=== PATIENT | male | born 1970 | race Caucasian/White ===

== ENCOUNTER → 2017-04-25 | Outpatient (CLI) | payer BC ==
[2016-04-10 11:00] VITALS: BP 113/78
[~2017-04-25] MED LIST: CIPR500T94 PO; DIPH25CA58 PO; METR500T PO; no home medications
--- NOTE | 2017-04-25 18:05 | KCIC ---
5 view cervical spine radiographs 04/25/2017 CLINICAL HISTORY: Low back pain which radiates down both legs. AP, 2 lateral and bilateral oblique digital radiographs of the lumbar spine were obtained. Minimal lateral curvature of the lumbar spine is seen convex to the right. Degenerative changes consisting of vertebral endplate sclerosis and minimal anterior and posterior vertebral body osteophyte formation is seen involving the mid and lower lumbar disc spaces. Mild degenerative changes are seen along the facet joints at L4-5 and L5-S1. Mild disc space narrowing is seen at L4-5 and L5-S1. No fracture or subluxation is seen. IMPRESSION: Relatively mild degenerative changes are seen involving the mid and lower lumbar spine as outlined above. No acute osseous abnormality is seen. Electronically signed by: Shun Goode MD (04/25/2017 6:02 PM)
== END | disposition home or self-care (01) ==
LOC: KCIC 13:57
PROVIDERS: ATTEND Family Medicine
DX: M47.896 Other spondylosis, lumbar region (principal); M54.32 Sciatica, left side; M54.31 Sciatica, right side
CPT/HCPCS: 72110

== ENCOUNTER 2018-12-07 13:56 | Emergency (ER) | payer BC ==
[~2018-12-07] VITALS: Ht 177.8 cm; Wt 69.4 kg
[2018-12-07 13:56] VITALS: BP 153/90
[2018-12-07] MEDS: DEXAMETHASONE SOD PHOS 20 MG/5 ML VIAL. IM ONE (14:49)
[2018-12-07] MEDS: diazePAM 5 MG TABLET PO ONE (14:49)
[2018-12-07] MEDS: HYDROcodone/APAP 5/325MG 1 TAB TABLET PO ONE (15:31)
[2018-12-07] MEDS ORDERED: ORPH100T PO (15:39)
--- NOTE | 2018-12-07 15:39 | PHYS DOC ---
Past Medical History Past Medical History: Other Additional Past Medical Histor: BACK PAIN Past Surgical History: Other Additional Past Surgical Histo: VASECTOMY, CYST R WRIST Alcohol Use: Occasionally Drug Use: None Adult General Chief Complaint Chief Complaint: BACK PAIN OR INJURY [facility] HPI Patient is a 48 year old who presents to the emergency room, accompanied by his fiance, with complaints of severe low back pain that shoots into his bilateral groin since Tuesday. Patient states pain began when he was bending down to clean some hiking boots. He denies any fall or known injury. Currently reports pain is 9 out of 10 on pain scale he states that nothing alleviates his pain however this was worsened concern positions. He has gone to the chiropractor 3 times this week and received acupuncture with no relief of his pain. Patient denies any saddle anesthesia, priapism, or loss of bowel or bladder control. He states he has been taking naproxen, Flexeril, and Tylenol for relief of pain. Review of Systems Review of Systems Constitutional: Denies fever or chills [] Respiratory: Denies cough or shortness of breath [] Cardiovascular: No additional information not addressed in HPI [] GI: Denies abdominal pain, nausea, vomiting, or saddle anesthesia : Denies dysuria, increased urinary frequency, or hematuria; see history of present illness [] Musculoskeletal: See history of present illness Integument: Denies rash or skin lesions [] Neurologic: Denies headache, focal weakness or sensory changes [] Current Medications Current Medications Current Medications Medications (Trade) Dose Ordered Sig/Carole Start Time Stop Time Status Last Admin Dose Admin Acetaminophen/ Hydrocodone Bitart (Lortab 5/325) 1 tab 1X ONCE 12/07/18 15:30 12/07/18 15:31 DC 12/07/18 15:31 1 TAB Dexamethasone Sodium Phosphate (Decadron) 10 mg 1X ONCE 12/07/18 14:30 12/07/18 14:31 DC 12/07/18 14:49 10 MG Diazepam (Valium) 5 mg 1X ONCE 12/07/18 14:30 12/07/18 14:31 DC 12/07/18 14:49 5 MG Allergies Allergies Allergies Coded Allergies Type Severity Reaction Last Updated Verified No Known Drug Allergies 12/07/18 No Physical Exam Physical Exam Constitutional: Well developed, well nourished, no acute distress, non-toxic appearance. [] HENT: Normocephalic, atraumatic, bilateral external ears normal, oropharynx moist, nose normal. [] Eyes: PERRLA, conjunctiva normal, no discharge. [] Neck: Normal range of motion, no stridor. [] Cardiovascular:Heart rate regular rhythm, no murmur [] Lungs & Thorax: Bilateral breath sounds clear to auscultation [] Skin: Warm, dry, no erythema, no rash. [] Back: No bony tenderness, or deformity; bilateral lumbar paraspinal tenderness, increased pain with straight leg lift bilaterally Extremities: No cyanosis, ROM intact, no edema. [] Neurologic: Alert and oriented X 3, normal motor function, normal sensory function, no focal deficits noted. [] Psychologic: Affect normal, judgement normal, mood normal. [] Current Patient Data Vital Signs Vital Signs Date Time Temp Pulse Resp B/P (MAP) Pulse Ox O2 Delivery O2 Flow Rate FiO2 12/07/18 13:56 98.0 110 18 153/90 (111) 99 Room Air 98.0 EKG EKG [] Radiology/Procedures Radiology/Procedures [] Course & Med Decision Making Course & Med Decision Making Pertinent Labs and Imaging studies reviewed. (See chart for details) Dx: acute bilateral low back pain DDx: cauda equina syndrome, UTI, kidney stone Pt was given 5 mg of valium, 1 hydrocodone, and 10 mg of IM decadron in the ER. He reports some relief in pain. Prescription written for orphenadrine and hydrocodone. Follow up with PCP for further evaluation and possibly MRI. Patient verbalized an understanding of home care, medications, follow-up, and return to ED instructions and was in agreement with the plan of care. [] Dragon Disclaimer Dragon Disclaimer This electronic medical record was generated, in whole or in part, using a voice recognition dictation system. Departure Departure Impression: Primary Impression: Low back pain Disposition: 01 HOME, SELF-CARE Condition: STABLE Referrals: KAVON ISABEL (PCP) Patient Instructions: Back Pain, Adult, [id number] Additional Instructions: Fill prescription and use as directed. Follow up with your primary care doctor for further evaluation of your back pain and possibly an MRI, return to the ER if symptoms worsen. Scripts Hydrocodone Bit/Acetaminophen (HYDROCODONE-APAP 5-325 ) 1 Tab Tablet 1 TAB PO PRN Q6HRS PRN for PAIN for 3 Days, #12 TAB 0 Refills Prov: BERTRAM BEDOYA APRN 12/07/18 Orphenadrine Citrate (ORPHENADRINE CITRATE) 100 Mg Tablet.er 100 MG PO BID PRN for MUSCLE SPASMS for 10 Days, #20 TAB.SR 0 Refills Prov: BERTRAM BEDOYA APRN 12/07/18 Problem Qualifiers Primary Impression: Low back pain Chronicity: acute Back pain laterality: bilateral Sciatica presence: unspecified whether sciatica present Qualified Codes: M54.5 - Low back pain BERTRAM BEDOYA APRN Dec 07, 2018 15:39
[2018-12-07] MEDS ORDERED: HYDR-2761 PO (15:41)
== END 2018-12-07 15:45 | disposition home or self-care (01) ==
LOC: ER 13:56
DX: M54.42 Lumbago with sciatica, left side (principal); M54.41 Lumbago with sciatica, right side; R31.9 Hematuria, unspecified; R35.0 Frequency of micturition; Z98.52 Vasectomy status
CPT/HCPCS: 96372; 99283; J1100